=== PATIENT | male | born 1985 | race Caucasian/White ===

== ENCOUNTER 2017-05-23 14:13 | Emergency (ER) | payer MEDICAID ==
[~2017-05-23] VITALS: Wt 70.0 kg
[2017-05-23 15:17] LABS: BASOPHILS % (AUTO) 0.4 % (0-1); EOSINOPHILS # (AUTO) 0.1 X10'3 (0-0.9); EOSINOPHILS % (AUTO) 0.8 % (0-6); HEMOGLOBIN 15.8 g/dl (14.0-17.9); LYMPHOCYTES # (AUTO) 0.8 X10'3 (1.1-4.8); LYMPHOCYTES % (AUTO) 10.2 % (21-51); MEAN CORPUSCULAR HEMOGLOBIN 30.5 PG (27.0-31.0); MEAN CORPUSCULAR VOLUME 87.1 FL (78-98); MEAN PLATELET VOLUME 9.1 FL (7.4-10.4); MONOCYTES # (AUTO) 0.4 X10'3 (0-0.9); MONOCYTES % (AUTO) 4.8 % (2-12); NEUTROPHILS # (AUTO) 6.6 X10'3 (1.8-7.7); NEUTROPHILS % (AUTO) 83.8 % (42-75); PLATELET COUNT 243 X10'3 (140-440); RED BLOOD COUNT 5.17 X10'6 (4.70-6.10); RED CELL DISTRIBUTION WIDTH 14.2 % (11.5-14.5); WHITE BLOOD COUNT 7.8 X10'3 (4.5-11.0)
[2017-05-23 15:27] LABS: PARTIAL THROMBOPLASTIN TIME 23 SECONDS (22-32); PROTHROMBIN TIME 10.1 SECONDS (9.0-12.0)
[2017-05-23 15:41] LABS: ALANINE AMINOTRANSFERASE 48 U/L (12-78); ALBUMIN 4.3 G/DL (3.4-5.0); ALBUMIN/GLOBULIN RATIO 1.1 (1.1-1.5); ALKALINE PHOSPHATASE 75 IU/L (46-116); ANION GAP 14 (8-16); ASPARTATE AMINO TRANSFERASE 24 U/L (10-37); BILIRUBIN,TOTAL 0.4 MG/DL (0.1-1.0); BLOOD UREA NITROGEN 13 MG/DL (7-18); BUN/CREATININE RATIO 12.5 (5.4-32.0); CALCIUM 9.6 MG/DL (8.5-10.1); CHLORIDE 103 MMOL/L (99-107); CREATININE 1.04 MG/DL (0.60-1.10); ETHANOL < 0.010 GM/DL (0.0-0.010); GLUCOSE 205 MG/DL (70-104); POTASSIUM 3.6 MMOL/L (3.5-5.1); SODIUM 140 MMOL/L (135-145); TOTAL CARBON DIOXIDE 22.8 MMOL/L (24-32); TOTAL PROTEIN 8.3 G/DL (6.4-8.2); eGFR 84 ML/MIN
[2017-05-24 00:09] LABS: CLARITY,URINE CLOUDY (Clear); COLOR,URINE YELLOW (Yellow); GLUCOSE, URINE NEGATIVE (Neg); KETONES,URINE 15 mg/dl (Neg); LEUKOCYTE ESTERASE ,URINE NEGATIVE (Neg); NITRITES, URINE NEGATIVE (Neg); OCCULT BLOOD,URINE NEGATIVE (Neg); PH,URINE 6.5 (4.8-8.0); PROTEIN,URINE TRACE mg/dl (Neg)
[2017-05-24 00:14] LABS: UA COLLECTION TYPE CLN CATCH MIDSTREAM
[2017-05-24 00:19] LABS: AMORPHOUS PHOSPHATES 4+
[2017-05-24 00:20] LABS: BACTERIA,URINE NONE SEEN /HPF (Neg); RBC,URINE NONE SEEN /HPF (0-2); SQUAMOUS EPITHELIAL CELL,UR FEW /LPF (FEW); WBC,URINE 0-4 /HPF (0-4)
[2017-05-24 00:21] LABS: MUCUS STRANDS MANY /LPF (Neg); URINE AMPHETAMINE SCREEN NEGATIVE (Neg); URINE BARBITUATE SCREEN NEGATIVE (Neg); URINE BENZODIAZEPINES SCREEN NEGATIVE (Neg); URINE CANNABINOID SCREEN NEGATIVE (Neg); URINE COCAINE SCREEN NEGATIVE (Neg); URINE METHADONE SCREEN NEGATIVE (Neg); URINE OPIATE SCREEN NEGATIVE (Neg); URINE PHENCYCLIDINE SCREEN NEGATIVE (Neg)
[2017-05-24] MEDS ORDERED: UNABLE TO OBTAIN (21:20)
[2017-05-26] MEDS ORDERED: dextrose ORAL solution 15 GM/59 ML bottle PO ONE (12:00)
[2017-05-26] MEDS ORDERED: potassium Cl 20mEq in D5-NS 1,000 ML IV ONE (12:35)
[2017-05-26] MEDS: dextrose 5%-normal saline 1,000 ML IV SCH (12:35)
[2017-05-26] MEDS ORDERED: normal saline 1000ML IV soln IVB ONE (19:25)
[2017-05-27] MEDS: dextrose 5%-normal saline 1,000 ML IV SCH (08:28)
[2017-05-27 11:27] LABS: BASOPHILS % (AUTO) 0.7 % (0-1); EOSINOPHILS # (AUTO) 0.2 X10'3 (0-0.9); EOSINOPHILS % (AUTO) 2.7 % (0-6); HEMATOCRIT 41.4 % (42.0-52.0); HEMOGLOBIN 14.6 g/dl (14.0-17.9); LYMPHOCYTES # (AUTO) 1.1 X10'3 (1.1-4.8); LYMPHOCYTES % (AUTO) 18.1 % (21-51); MEAN CORPUSCULAR HEMOGLOBIN 30.7 PG (27.0-31.0); MEAN CORPUSCULAR HGB CONC 35.3 % (33.0-36.5); MEAN PLATELET VOLUME 8.6 FL (7.4-10.4); MONOCYTES # (AUTO) 0.5 X10'3 (0-0.9); MONOCYTES % (AUTO) 8.4 % (2-12); NEUTROPHILS # (AUTO) 4.2 X10'3 (1.8-7.7); NEUTROPHILS % (AUTO) 70.1 % (42-75); PLATELET COUNT 196 X10'3 (140-440); RED BLOOD COUNT 4.76 X10'6 (4.70-6.10); RED CELL DISTRIBUTION WIDTH 14.2 % (11.5-14.5); WHITE BLOOD COUNT 5.9 X10'3 (4.5-11.0)
[2017-05-27 11:42] LABS: ALANINE AMINOTRANSFERASE 34 U/L (12-78); ALBUMIN 3.7 G/DL (3.4-5.0); ALBUMIN/GLOBULIN RATIO 1.1 (1.1-1.5); ALKALINE PHOSPHATASE 60 IU/L (46-116); ANION GAP 12 (8-16); ASPARTATE AMINO TRANSFERASE 17 U/L (10-37); BILIRUBIN,TOTAL 0.8 MG/DL (0.1-1.0); BLOOD UREA NITROGEN 10 MG/DL (7-18); BUN/CREATININE RATIO 14.3 (5.4-32.0); CHLORIDE 106 MMOL/L (99-107); GLUCOSE 113 MG/DL (70-104); POTASSIUM 3.7 MMOL/L (3.5-5.1); SODIUM 142 MMOL/L (135-145); TOTAL CARBON DIOXIDE 23.7 MMOL/L (24-32); TOTAL PROTEIN 7.2 G/DL (6.4-8.2); eGFR > 90 ML/MIN
[2017-05-27] MEDS: Protein Smoothie (high protein) 240ml (8oz) cup PO SCH ×2 (13:00→18:00)
[2017-05-27] MEDS ORDERED: diphenhydrAMINE 50 mg/ml inj IV ONE (14:20)
[2017-05-27] MEDS ORDERED: LORazepam 2 mg/ml vial IV ONE (14:20)
[2017-05-28] MEDS: dextrose 5%-normal saline 1,000 ML IV SCH (05:02)
[2017-05-28] MEDS ORDERED: LORazepam 2 mg/ml vial IV ONE ×2 (07:20→07:55)
[2017-05-28] MEDS: Protein Smoothie (high protein) 240ml (8oz) cup PO SCH ×3 (08:00→18:00)
[2017-05-28] MEDS: LORazepam 2 mg/ml vial IV SCH ×2 (14:37→20:50)
[2017-05-29] MEDS: dextrose 5%-normal saline 1,000 ML IV SCH (00:32)
[2017-05-29] MEDS: LORazepam 2 mg/ml vial IV SCH ×2 (01:42→08:17)
[2017-05-29 05:30] VITALS: BP 105/71
[2017-05-29] MEDS: Protein Smoothie (high protein) 240ml (8oz) cup PO SCH (08:17)
[2017-05-29 08:33] LABS: BASOPHILS % (AUTO) 0.7 % (0-1); EOSINOPHILS # (AUTO) 0.3 X10'3 (0-0.9); EOSINOPHILS % (AUTO) 4.5 % (0-6); HEMATOCRIT 39.1 % (42.0-52.0); HEMOGLOBIN 13.9 g/dl (14.0-17.9); LYMPHOCYTES # (AUTO) 1.1 X10'3 (1.1-4.8); LYMPHOCYTES % (AUTO) 17.4 % (21-51); MEAN CORPUSCULAR HEMOGLOBIN 30.7 PG (27.0-31.0); MEAN CORPUSCULAR HGB CONC 35.7 % (33.0-36.5); MEAN CORPUSCULAR VOLUME 85.9 FL (78-98); MEAN PLATELET VOLUME 8.4 FL (7.4-10.4); MONOCYTES # (AUTO) 0.6 X10'3 (0-0.9); MONOCYTES % (AUTO) 9.4 % (2-12); NEUTROPHILS # (AUTO) 4.4 X10'3 (1.8-7.7); PLATELET COUNT 197 X10'3 (140-440); RED BLOOD COUNT 4.55 X10'6 (4.70-6.10); RED CELL DISTRIBUTION WIDTH 14.1 % (11.5-14.5); WHITE BLOOD COUNT 6.5 X10'3 (4.5-11.0)
[2017-05-29 08:35] LABS: ALANINE AMINOTRANSFERASE 29 U/L (12-78); ALBUMIN 3.3 G/DL (3.4-5.0); ALBUMIN/GLOBULIN RATIO 1.1 (1.1-1.5); ALKALINE PHOSPHATASE 54 IU/L (46-116); ANION GAP 7 (8-16); ASPARTATE AMINO TRANSFERASE 13 U/L (10-37); BILIRUBIN,TOTAL 0.4 MG/DL (0.1-1.0); BLOOD UREA NITROGEN 10 MG/DL (7-18); BUN/CREATININE RATIO 14.3 (5.4-32.0); CALCIUM 8.7 MG/DL (8.5-10.1); CHLORIDE 108 MMOL/L (99-107); GLUCOSE 129 MG/DL (70-104); POTASSIUM 3.5 MMOL/L (3.5-5.1); SODIUM 143 MMOL/L (135-145); TOTAL CARBON DIOXIDE 27.9 MMOL/L (24-32); TOTAL PROTEIN 6.4 G/DL (6.4-8.2); eGFR > 90 ML/MIN
== END 2017-05-29 12:13 ==
LOC: ER 14:13
DX: F20.2 Catatonic schizophrenia (principal); R00.0 Tachycardia, unspecified; R73.9 Hyperglycemia, unspecified
CPT/HCPCS: 36415; 70450; 71045; 80053; 80305; 80320; 81001; 82140; 82948; 83735; 84443; 84484; 85025; 85610; 85730; 93005; 96361; 96374; 96375; 96376; 99285; A4315; J1200; J2060; J3480; J7042; 81003; J7070

== ENCOUNTER 2018-02-27 21:50 | Emergency (ER) | payer MEDICAID ==
[~2018-02-27] VITALS: Ht 167.6 cm; Wt 60.0 kg
[~2018-02-27 21:50] MED LIST: UNABLE TO OBTAIN
--- NOTE | 2018-02-27 22:15 | NUR ---
NO FOCAL NEURO DEFICIT NOTED; MOTHER AT BEDSIDE AND PRESENT FOR NEURO EXAM. PATIENT APPEARS BASELINE PER MOTHER
[2018-02-27] MEDS ORDERED: TRAZ-218 PO (22:40)
[2018-02-27 23:09] VITALS: BP 123/75
== END 2018-02-27 23:12 | disposition home or self-care (01) ==
LOC: ER 21:50
DX: S06.0X0A Concussion without loss of consciousness, initial encounter (principal); F41.9 Anxiety disorder, unspecified; F20.9 Schizophrenia, unspecified; F12.10 Cannabis abuse, uncomplicated; Z79.899 Other long term (current) drug therapy; Y04.0XXA Assault by unarmed brawl or fight, initial encounter; Y93.89 Activity, other specified; Y92.89 Other specified places as the place of occurrence of the external cause; Y99.8 Other external cause status
CPT/HCPCS: 99284

== ENCOUNTER 2023-01-04 11:37 | Emergency (ER) | payer MEDICAID ==
[~2023-01-04] VITALS: Ht 167.6 cm; Wt 68.2 kg
[~2023-01-04 11:37] MED LIST changes: +TRAZ-251 PO
[2023-01-04 11:43] VITALS: TEMP 98
[2023-01-04 12:05] LABS: BASOPHILS # (AUTO) 0.1 X10'3 (0-0.2); BASOPHILS % (AUTO) 1.4 % (0-1); EOSINOPHILS # (AUTO) 0.1 X10'3 (0-0.9); EOSINOPHILS % (AUTO) 0.6 % (0-6); HEMATOCRIT 45.2 % (42.0-52.0); HEMOGLOBIN 15.3 g/dl (14.0-17.9); LYMPHOCYTES # (AUTO) 1.1 X10'3 (1.1-4.8); MEAN CORPUSCULAR HGB CONC 33.8 g/dL (33.0-36.5); MEAN CORPUSCULAR VOLUME 88.7 FL (78-98); MEAN PLATELET VOLUME 8.6 FL (7.4-10.4); MONOCYTES # (AUTO) 0.7 X10'3 (0-0.9); MONOCYTES % (AUTO) 6.9 % (2-12); NEUTROPHILS # (AUTO) 7.8 X10'3 (1.8-7.7); NEUTROPHILS % (AUTO) 80.1 % (42-75); PLATELET COUNT 358 X10'3 (140-440); RED BLOOD COUNT 5.09 X10'6 (4.70-6.10); RED CELL DISTRIBUTION WIDTH 14.3 % (11.5-14.5); WHITE BLOOD COUNT 9.8 X10'3 (4.5-11.0)
[2023-01-04 12:22] LABS: ALANINE AMINOTRANSFERASE 60 U/L (12-78); ALBUMIN/GLOBULIN RATIO 1.1 (1.1-1.5); ALKALINE PHOSPHATASE 95 IU/L (46-116); ANION GAP 10 (8-16); ASPARTATE AMINO TRANSFERASE 14 U/L (10-37); BILIRUBIN,TOTAL 0.3 MG/DL (0.1-1.0); BLOOD UREA NITROGEN 8 MG/DL (7-18); BUN/CREATININE RATIO 8.2 (10.0-20.0); CALCIUM 9.6 MG/DL (8.5-10.1); CHLORIDE 101 MMOL/L (99-107); CREATININE 0.97 MG/DL (0.60-1.10); GLUCOSE 241 MG/DL (70-104); POTASSIUM 3.8 MMOL/L (3.5-5.1); SODIUM 137 MMOL/L (135-145); TOTAL CARBON DIOXIDE 25.7 MMOL/L (24-32); TOTAL PROTEIN 7.5 G/DL (6.4-8.2); eCRCL 95 ML/MIN; eGFR 88 ML/MIN
[2023-01-04 12:30] LABS: THYROID STIMULATING HORMONE 3.63 ulU/ml (0.34-4.50)
[2023-01-04 12:41] LABS: ETHANOL < 10 MG/DL (<10)
[2023-01-04 14:48] VITALS: BP 124/84; PULSE 109; RESP 18; O2SAT 98
--- NOTE | 2023-01-04 15:19 | NUR ---
PT belongings placed in OF locker 25.
--- NOTE | 2023-01-04 16:01 | NUR ---
PT BELONGINGS COLLECTED IN PLACED IN LOCKER.
--- NOTE | 2023-01-04 16:33 | NUR ---
Pt. was escorted over from the Main ER accompanied by staff.
--- NOTE | 2023-01-04 17:02 | NUR ---
Attempted to complete 1:1 with pt., however he refused to answer questions and would just repeat the same question asked by this show card writer over and over again. Also attempted to complete medication reconciliation, however pt. again refused to answer questions and just stated, "Beep, beep, beep." Pt. was provided with fluids and a urine collection cup in order to obtain ordered urinalysis. Pt. suddenly yelled out, "Roar!" He then drank his fluids and returned to laying quietly in bed. Will endorse to Noc shift and continue pt. to provide a urine sample.
--- NOTE | 2023-01-04 17:46 | NUR ---
Pt. is sitting up eating dinner at this time.
--- NOTE | 2023-01-04 17:50 | NUR ---
Pt. suddenly yelled out, "Consortium, consortium, consortium!" This promotion writer questioned him regarding any needs and pt. stated, "Shut the f... up, b....." He continues to sit up and eat at this time, will continue to monitor closely.
--- NOTE | 2023-01-04 18:31 | NUR ---
Pt. continues to yell out intermittently, "She's a f...ing [employer]." He appears psychotic, but will then be quiet for long stretches of time. Will continue to monitor closely.
--- NOTE | 2023-01-04 18:44 | NUR ---
Pt. ambulated to the main ER accompanied by staff and director corporate security.
[2023-01-04 23:45] LABS: BILIRUBIN,URINE NEGATIVE (Neg); CLARITY,URINE CLEAR (Clear); COLOR,URINE STRAW (Yellow); GLUCOSE, URINE NEGATIVE (Neg); KETONES,URINE NEGATIVE (Neg); LEUKOCYTE ESTERASE ,URINE NEGATIVE (Neg); NITRITES, URINE NEGATIVE (Neg); OCCULT BLOOD,URINE NEGATIVE (Neg); PROTEIN,URINE NEGATIVE (Neg); UROBILINOGEN,URINE 0.2 E.U/dL (0.2-1.0)
[2023-01-04 23:48] LABS: UA COLLECTION TYPE CLN CATCH MIDSTREAM
[2023-01-04 23:54] LABS: URINE AMPHETAMINE SCREEN NEGATIVE (Neg); URINE BARBITUATE SCREEN NEGATIVE (Neg); URINE BENZODIAZEPINES SCREEN NEGATIVE (Neg); URINE CANNABINOID SCREEN NEGATIVE (Neg); URINE COCAINE SCREEN NEGATIVE (Neg); URINE METHADONE SCREEN NEGATIVE (Neg); URINE OPIATE SCREEN NEGATIVE (Neg); URINE PHENCYCLIDINE SCREEN NEGATIVE (Neg)
--- NOTE | 2023-01-05 06:40 | NUR ---
Patient moved via his bed from fast track to room 24. He remained asleep.
--- NOTE | 2023-01-05 09:22 | NUR ---
[facility] FAXED.
--- NOTE | 2023-01-05 11:30 | NUR ---
The patient appears to be sleeping. No s/sx of distress.
--- NOTE | 2023-01-05 13:49 | NUR ---
Received call from [facility]. They will call back if accepted.
--- NOTE | 2023-01-05 14:17 | NUR ---
Patient accepted to [facility]. Will pick him up at 1445.
== END 2023-01-05 15:08 | disposition still patient (30) ==
LOC: ER 11:37
DX: R45.851 Suicidal ideations (principal); Z20.822 Contact with and (suspected) exposure to COVID-19; F20.9 Schizophrenia, unspecified
CPT/HCPCS: 36415; 80053; 80305; 80320; 81003; 84443; 85025; 87811; 99285

== ENCOUNTER 2023-08-24 00:31 | Emergency (ER) | payer MEDICAID ==
[~2023-08-24] VITALS: Ht 167.6 cm; Wt 74.8 kg
[2023-08-24 01:30] LABS: BILIRUBIN,URINE SMALL (Neg); CLARITY,URINE CLEAR (Clear); COLOR,URINE YELLOW (Yellow); GLUCOSE, URINE 500 mg/dl (Neg); KETONES,URINE >=80 mg/dl (Neg); LEUKOCYTE ESTERASE ,URINE NEGATIVE (Neg); NITRITES, URINE NEGATIVE (Neg); OCCULT BLOOD,URINE NEGATIVE (Neg); PROTEIN,URINE TRACE mg/dl (Neg); UROBILINOGEN,URINE 0.2 E.U/dL (0.2-1.0)
[2023-08-24 01:34] LABS: BASOPHILS # (AUTO) 0.1 X10'3 (0-0.2); BASOPHILS % (AUTO) 0.6 % (0-1); EOSINOPHILS % (AUTO) 0.3 % (0-6); HEMATOCRIT 43.1 % (42.0-52.0); HEMOGLOBIN 14.9 g/dl (14.0-17.9); LYMPHOCYTES # (AUTO) 1.2 X10'3 (1.1-4.8); LYMPHOCYTES % (AUTO) 12.9 % (21-51); MEAN CORPUSCULAR HGB CONC 34.7 g/dL (33.0-36.5); MEAN CORPUSCULAR VOLUME 86.6 FL (78-98); MEAN PLATELET VOLUME 8.6 FL (7.4-10.4); MONOCYTES # (AUTO) 0.9 X10'3 (0-0.9); MONOCYTES % (AUTO) 9.5 % (2-12); NEUTROPHILS # (AUTO) 7.2 X10'3 (1.8-7.7); NEUTROPHILS % (AUTO) 76.7 % (42-75); PLATELET COUNT 269 X10'3 (140-440); RED BLOOD COUNT 4.98 X10'6 (4.70-6.10); RED CELL DISTRIBUTION WIDTH 14.3 % (11.5-14.5); WHITE BLOOD COUNT 9.4 X10'3 (4.5-11.0)
[2023-08-24 01:40] LABS: UA COLLECTION TYPE CLN CATCH MIDSTREAM
[2023-08-24] MEDS ORDERED: METF-900 PO (01:43)
[2023-08-24] MEDS ORDERED: BUSP5TAB3 PO (01:43)
[2023-08-24] MEDS ORDERED: DIVA500T9 (01:43)
[2023-08-24 01:47] LABS: ALANINE AMINOTRANSFERASE 39 U/L (12-78); ALBUMIN 4.2 G/DL (3.4-5.0); ALBUMIN/GLOBULIN RATIO 1.1 (1.1-1.5); ALKALINE PHOSPHATASE 80 IU/L (46-116); ANION GAP 14 (8-16); ASPARTATE AMINO TRANSFERASE 13 U/L (10-37); BILIRUBIN,TOTAL 0.5 MG/DL (0.1-1.0); BLOOD UREA NITROGEN 8 MG/DL (7-18); BUN/CREATININE RATIO 6.9 (10.0-20.0); CALCIUM 9.5 MG/DL (8.5-10.1); CHLORIDE 99 MMOL/L (99-107); CREATININE 1.16 MG/DL (0.60-1.10); GLUCOSE 300 MG/DL (70-104); POTASSIUM 3.8 MMOL/L (3.5-5.1); SODIUM 133 MMOL/L (135-145); TOTAL CARBON DIOXIDE 20.3 MMOL/L (24-32); eCRCL 79 ML/MIN; eGFR 71 ML/MIN
[2023-08-24 01:47] LABS: URINE AMPHETAMINE SCREEN NEGATIVE (Neg); URINE BARBITUATE SCREEN NEGATIVE (Neg); URINE BENZODIAZEPINES SCREEN NEGATIVE (Neg); URINE CANNABINOID SCREEN NEGATIVE (Neg); URINE COCAINE SCREEN NEGATIVE (Neg); URINE METHADONE SCREEN NEGATIVE (Neg); URINE OPIATE SCREEN NEGATIVE (Neg); URINE PHENCYCLIDINE SCREEN NEGATIVE (Neg)
[2023-08-24 01:48] LABS: BACTERIA,URINE FEW /HPF (Neg); HYALINE CASTS 0-3 /LPF (NEGATIVE); RBC,URINE 0-2 /HPF (0-2); SQUAMOUS EPITHELIAL CELL,UR FEW /LPF (FEW); WBC,URINE 0-4 /HPF (0-4)
[2023-08-24] MEDS: diphenhydrAMINE 50 mg/ml inj IM ONE (03:08)
[2023-08-24] MEDS: OLANZapine **IM** 10 mg inj. IM ONE (03:08)
[2023-08-24 03:29] LABS: THYROID STIMULATING HORMONE 2.17 ulU/ml (0.34-4.50)
[2023-08-24] MEDS ORDERED: ZIPR40CA14 (03:29)
[2023-08-24] MEDS ORDERED: PROP20TA6 PO (03:29)
[2023-08-24] MEDS ORDERED: SERT-433 (03:29)
[2023-08-24] MEDS ORDERED: HYDR-3686 PO (03:29)
[2023-08-24] MEDS ORDERED: hydrOXYzine 25 MG tablet PO PRN (05:00)
[2023-08-24] MEDS ORDERED: propranolol 40mg tablet PO PRN (05:00)
[2023-08-24] MEDS: olanzapine 10mg tablet PO SCH (08:29)
[2023-08-24] MEDS: sertraline 50mg tablet PO SCH (08:29)
[2023-08-24] MEDS: busPIRone 5mg tablet PO SCH (08:29)
[2023-08-24 09:05] VITALS: BP 105/79; PULSE 75; RESP 22; TEMP 97.6; O2SAT 97
[2023-08-24] MEDS ORDERED: ziprasidone 20mg capsule PO SCH (10:40)
[2023-08-24] MEDS ORDERED: divalproex sod 250mg ER (24-hour) tablet PO SCH (21:00)
[2023-08-25] MEDS ORDERED: ziprasidone 20mg capsule PO SCH (08:00)
== END 2023-08-24 14:36 ==
LOC: ER 00:32
DX: F20.9 Schizophrenia, unspecified (principal); Z20.822 Contact with and (suspected) exposure to COVID-19; Z73.6 Limitation of activities due to disability; F12.90 Cannabis use, unspecified, uncomplicated; F17.200 Nicotine dependence, unspecified, uncomplicated; Z79.899 Other long term (current) drug therapy; Z79.1 Long term (current) use of non-steroidal anti-inflammatories (NSAID)
CPT/HCPCS: 36415; 80053; 80305; 81001; 82948; 84443; 85025; 87811; 96372; 99285; J1200; J3490

== ENCOUNTER 2023-09-10 12:58 | Emergency (ER) | payer MEDICAID ==
[~2023-09-10 12:58] MED LIST changes: +BUSP5TAB3 PO; +DIVA500T9; +HYDR-3686 PO; +METF-900 PO; +PROP20TA6 PO; +SERT-433; -TRAZ-251 PO; -UNABLE TO OBTAIN; +ZIPR40CA14
[2023-09-10 14:48] LABS: BASOPHILS # (AUTO) 0.1 X10'3 (0-0.2); BASOPHILS % (AUTO) 0.8 % (0-1); EOSINOPHILS # (AUTO) 0.2 X10'3 (0-0.9); EOSINOPHILS % (AUTO) 1.7 % (0-6); HEMATOCRIT 39.3 % (42.0-52.0); HEMOGLOBIN 13.6 g/dl (14.0-17.9); LYMPHOCYTES % (AUTO) 9.9 % (21-51); MEAN CORPUSCULAR HEMOGLOBIN 30.3 PG (27.0-31.0); MEAN CORPUSCULAR HGB CONC 34.7 g/dL (33.0-36.5); MEAN CORPUSCULAR VOLUME 87.4 FL (78-98); MEAN PLATELET VOLUME 8.6 FL (7.4-10.4); MONOCYTES # (AUTO) 0.7 X10'3 (0-0.9); NEUTROPHILS # (AUTO) 8.6 X10'3 (1.8-7.7); NEUTROPHILS % (AUTO) 80.6 % (42-75); PLATELET COUNT 292 X10'3 (140-440); WHITE BLOOD COUNT 10.6 X10'3 (4.5-11.0)
[2023-09-10 14:58] LABS: ALBUMIN 3.8 G/DL (3.4-5.0); ANION GAP 14 (8-16); BLOOD UREA NITROGEN 5 MG/DL (7-18); BUN/CREATININE RATIO 5.1 (10.0-20.0); CALCIUM 8.8 MG/DL (8.5-10.1); CHLORIDE 101 MMOL/L (99-107); CREATININE 0.98 MG/DL (0.60-1.10); ETHANOL < 10 MG/DL (<10); GLUCOSE 279 MG/DL (70-104); POTASSIUM 3.7 MMOL/L (3.5-5.1); SODIUM 136 MMOL/L (135-145); TOTAL CARBON DIOXIDE 21.5 MMOL/L (24-32); eGFR 87 ML/MIN
[2023-09-10] MEDS ORDERED: LITH300T3 PO (15:00)
[2023-09-10 15:50] LABS: URINE AMPHETAMINE SCREEN NEGATIVE (Neg); URINE BARBITUATE SCREEN NEGATIVE (Neg); URINE BENZODIAZEPINES SCREEN NEGATIVE (Neg); URINE CANNABINOID SCREEN NEGATIVE (Neg); URINE COCAINE SCREEN NEGATIVE (Neg); URINE METHADONE SCREEN NEGATIVE (Neg); URINE OPIATE SCREEN NEGATIVE (Neg); URINE PHENCYCLIDINE SCREEN NEGATIVE (Neg)
[2023-09-10] MEDS: haloperidol lactate 5mg/ml inj IM ONE (16:00)
[2023-09-11] MEDS: acetaminophen 325mg tablet PO ONE (04:58)
[2023-09-11] MEDS: LORazepam 1 MG tablet PO ONE (09:56)
[2023-09-11 10:05] LABS: BILIRUBIN,URINE SMALL (Neg); CLARITY,URINE CLEAR (Clear); COLOR,URINE YELLOW (Yellow); GLUCOSE, URINE 500 mg/dl (Neg); KETONES,URINE >=80 mg/dl (Neg); LEUKOCYTE ESTERASE ,URINE NEGATIVE (Neg); NITRITES, URINE NEGATIVE (Neg); OCCULT BLOOD,URINE NEGATIVE (Neg); PROTEIN,URINE NEGATIVE (Neg); UROBILINOGEN,URINE 0.2 E.U/dL (0.2-1.0)
[2023-09-11 10:11] LABS: UA COLLECTION TYPE NON-SPECIFIED
[2023-09-11 10:35] LABS: ALANINE AMINOTRANSFERASE 36 U/L (12-78); ALBUMIN 3.7 G/DL (3.4-5.0); ALBUMIN/GLOBULIN RATIO 1.1 (1.1-1.5); ALKALINE PHOSPHATASE 67 IU/L (46-116); ANION GAP 16 (8-16); ASPARTATE AMINO TRANSFERASE 30 U/L (10-37); BILIRUBIN,TOTAL 0.5 MG/DL (0.1-1.0); BLOOD UREA NITROGEN 6 MG/DL (7-18); BUN/CREATININE RATIO 6.9 (10.0-20.0); CALCIUM 8.9 MG/DL (8.5-10.1); CHLORIDE 100 MMOL/L (99-107); CREATININE 0.87 MG/DL (0.60-1.10); GLUCOSE 237 MG/DL (70-104); POTASSIUM 3.7 MMOL/L (3.5-5.1); SODIUM 137 MMOL/L (135-145); TOTAL PROTEIN 7.2 G/DL (6.4-8.2); eGFR > 90 ML/MIN
[2023-09-11 12:57] VITALS: BP 137/92; PULSE 96; RESP 16; TEMP 98.1; O2SAT 100
== END 2023-09-11 12:45 | disposition still patient (30) ==
LOC: ER 12:59
DX: F20.9 Schizophrenia, unspecified (principal); Z20.822 Contact with and (suspected) exposure to COVID-19; F12.90 Cannabis use, unspecified, uncomplicated; Z79.899 Other long term (current) drug therapy; Z79.1 Long term (current) use of non-steroidal anti-inflammatories (NSAID); Z87.891 Personal history of nicotine dependence
CPT/HCPCS: 36415; 80048; 80053; 80305; 80320; 81003; 85025; 87811; 96372; 99284; J1630